=== PATIENT | male | born 1960 | race Caucasian/White ===

== ENCOUNTER 2022-07-31 05:05 | Observation (INO) ==
--- NOTE | 2022-06-29 14:37 | PAT Medication Instructions ---
Medication Instructions Date of Service June 29, 2022 Home Medications amlodipine 5 mg tablet 5 mg PO HS lisinopril 10 mg tablet 10 mg PO QAM DO NOT take the morning of surgery lisinopril 10 mg tablet 10 mg PO QAM Take evening before surgery amlodipine 5 mg tablet 5 mg PO HS Other Notes NOTHING TO EAT OR DRINK AFTER MIDNIGHT. If you have any questions please call us at [phone] or [phone] or [phone] or [phone]
--- NOTE | 2022-07-07 11:20 | Anesthesiology Consultation ---
Date of Service July 07, 2022 Assessment & Plan (1) Encounter for pre-operative examination: Chart Review Chart Review: Acceptable Risk for Surgery (pending response from PCP re: Na ) and Patient seen in Pre Admission Testing - Please send optimization note to PCP re: hyponatremia Pt currently scheduled as 23 hours observation. If surgeon decides to change patient to Same Day Joint, patient would be acceptable risk for MARLINE, pending patient is motivated, has good support and surgeon's office completes [facility] Program preop requirements. Per PAT appt on 07/07/22, patient denies any recent travel or large group activities. Pt is vaccinated for Covid. Will leave to surgeon's discretion if preop Covid testing needed. Educated on importance of using Covid precautions one week prior to surgery Teaching & Discussion Pre-Anesthesia Teaching/Discussion Notes: Instructed NPO after midnight before surgery,except medications with 15 cc of water. Medication instructions provided according to the PAT guidelines. History Surgery Operation Date: 07/31/22 12:50 Proposed Procedures p Right Anterior Total Hip Arthroplasty - Jose Muñoz DO Height/Weight Height: 5 ft 10 in Weight: 87.8 kg Allergies Allergy/AdvReac Type Severity Reaction Status Date / Time No Known Allergies Allergy Verified 06/29/22 13:56 Medications Home Medications Medication Instructions Recorded Confirmed Last Taken amlodipine 5 mg tablet 5 mg PO HS 06/29/22 06/29/22 Unknown lisinopril 10 mg tablet 10 mg PO QAM 06/29/22 06/29/22 Unknown Wheeled Walker #1 ea 07/07/22 07/07/22 Unknown Past Medical History Medical History History of COVID-2019- LOSS OF TASTE AND SMELL; RESOLVED HTN (hypertension) Hx of renal calculi No recent issues Sleep apnea CPAP Exercise / Class Metabolic Activity II 4-5 Yardwork/Stairs/Walk up hill (one flight of stairs - no chest pain or SOB ) Past Family History Family History Other No family history of adverse response to anesthesia Past Surgical History Surgical History History of lithotripsy Hx of colonoscopy Hx of cystoscopy Past Anesthesia History No Hx of Anesthesia Complications and No Family Hx of Anesthesia Complications History of PONV No Hx of PONV and No Hx of Motion Sickness Social History Smoking Status: Never smoker Do You Dip or Chew Tobacco: No Hx Alcohol Use: Yes alcohol intake frequency: a few times a week Hx Substance Use: No substance use type: does not use Review of Systems Patient denies chest pain, shortness of breath, dyspnea on exertion, reflux, cough, wheezing, palpitations. No hx of seizures, stroke, AR. No hx of blood clots or blood transfusions Physical Exam Vital Signs VITALS BP 142/87 (usually BP well controlled) P 76 TEMP 98.1 SP02 99% RESP 16 Constitutional no acute distress ENMT Mouth: no TMJ clicking Thyromental Distance: > or= 3.5 Finger Breadths (4.0) Mallampati Class: I Neck neck extension not limited Respiratory normal respiratory effort; no respiratory distress Auscultation: lungs clear to auscultation bilaterally; no wheezes Cardiovascular Rate/Rhythm: regular rate and regular rhythm Heart Sounds: no murmur Vessels: no carotid bruit Musculoskeletal Spine: no pain with cervical ROM Extremities: extremities normal to inspection Psychiatric Orientation: alert Lab Results Anesthesia Preop Results Results Anesthesia Widget: WBC 10.35 K/ul (4.8-10.8) 07/07/22 Hgb 16.2 g/dl (14.0-18.0) 07/07/22 Hct 47.2 % (42.0-52.0) 07/07/22 Plt 389 K/uL (130-400) 07/07/22 Na 129 mmol/L (136-145) L 07/07/22 K 4.0 mmol/L (3.5-5.1) 07/07/22 Cl 93 mmol/L (98-107) L 07/07/22 CO2 27 mmol/L (21-32) 07/07/22 BUN 8 mg/dl (6-23) 07/07/22 Creat 0.82 mg/dl (0.6-1.4) 07/07/22 Glucose Level 80 mg/dl (70-99(Fasting)) 07/07/22 PT 10.6 Seconds (9.0-12.0) 07/07/22 PTT 29.7 Seconds (21.0-31.0) 07/07/22 INR 1.0 (0.9-1.1) 07/07/22 Blood Type A Positive 07/07/22 Antibody Screen NEGATIVE 07/07/22 Testing Laboratory Results Hyponatremia- will send note to PCP Electrocardiogram Date: 07/07/22 Findings: + NSR @ (84bpm ) Normal EKG per cardio Chest X-Ray Date: 07/07/22 Findings: + NAD COVID-19 Risk Screen Screening Information COVID-19 Screen Date: 07/07/22 Exposure 21 Days Family/Household +COVID Last 21 Days: No Exposure 10 Days Any COVID Exposure Last 10 Days: No Symptoms Last 10 Days Experienced COVID Sx Last 10 Days: No + COVID 0-90 Days COVID + in Last 0-90 Days: No Risk Plan COVID Risk Plan: No Risk Identified Patient Education COVID Preop Screening Education Complete: Yes
[2022-07-31] MEDS ORDERED: TRANEXAMIC ACID 1,000 MG **IV Intra-op IV SCH (06:00)
[2022-07-31] MEDS ORDERED: FAMOTIDINE 20 MG TAB PO SCH (06:00)
[2022-07-31] MEDS ORDERED: LR 60ML/HR IV SCH (06:00)
[2022-07-31] MEDS ORDERED: TRANEXAMIC ACID 1,000 MG **IV Pre-op IV SCH (06:00)
[2022-07-31] MEDS ORDERED: ceFAZolin 2000MG 2,000 MG/15 ML SYR IV SCH (06:00)
[2022-07-31] MEDS ORDERED: ORTHO JOINT MIX INFIL SCH (06:00)
[2022-07-31] MEDS ORDERED: LR 500ML BOLUS, THEN 15ML/HR IV SCH (06:00)
[2022-07-31] MEDS ORDERED: GABAPENTIN 300 MG CAP PO SCH (06:00)
[2022-07-31] MEDS ORDERED: ACETAMINOPHEN 500 MG TAB PO SCH (06:00)
[2022-07-31] MEDS ORDERED: dexAMETHasone 4 MG TAB PO SCH (06:00)
[2022-07-31] MEDS ORDERED: BUPIVACAINE 0.5 % 5 MG/1 ML PF 10ML VIAL ONE (06:12)
[2022-07-31] MEDS ORDERED: PROPOFOL IV EMULSION 10 MG/ML 20 ML VIAL IV ONE (06:27)
[2022-07-31] MEDS ORDERED: fentaNYL citrate PF 100 MCG/2 ML VIAL ONE (06:27)
[2022-07-31] MEDS ORDERED: MIDAZOLAM HCL 1 MG/ML 2ML VIAL ONE (06:27)
[2022-07-31] MEDS ORDERED: ORTHO JOINT ANESTHETIC ONE (06:37)
--- NOTE | 2022-07-31 06:45 | History & Physical Bridge Note ---
Date of Service July 31, 2022 History & Physical Bridge Note I have examined the patient, reviewed the History & Physical and in the interval since the performance of the History & Physical I have noted the following changes of clinical significance: no changes noted
[2022-07-31] MEDS ORDERED: KETAMINE 50 MG/5 ML SYRINGE ONE ×2 (07:20→07:37)
[2022-07-31] MEDS ORDERED: ONDANSETRON INJ 2 MG/ML 2 ML VIAL ONE (07:45)
[2022-07-31] MEDS ORDERED: DEXAMETHASONE SOD INJ 4 MG/ML VIAL ONE (07:45)
[2022-07-31] MEDS ORDERED: fentaNYL citrate PF 100 MCG/2 ML VIAL IV PRN (08:05)
[2022-07-31] MEDS ORDERED: NALOXONE HCL 0.4 MG/1 ML VIAL/CARP IV PRN ×2 (08:05→09:42)
[2022-07-31] MEDS ORDERED: ePHEDrine sulfate 50 MG/ML AMP IV PRN (08:05)
[2022-07-31] MEDS ORDERED: HYDROmorphone INJ 1 MG/ML SYRINGE IV PRN (08:05)
[2022-07-31] MEDS ORDERED: ATROPINE SULFATE 0.1 MG/ML 10ML SYR IV PRN (08:05)
[2022-07-31] MEDS ORDERED: ONDANSETRON INJ 2 MG/ML 2 ML VIAL IV PRN ×2 (08:05→09:42)
[2022-07-31] MEDS ORDERED: FLUMAZENIL 0.1 MG/1 ML 10 ML VIAL IV PRN (08:05)
[2022-07-31] MEDS ORDERED: PROMETHAZINE HCL 12.5 MG in SODIUM CHLORIDE 0.9% 50 ML IV PRN (08:05)
--- NOTE | 2022-07-31 08:20 | Operative Report ---
PG Post Operative Report Pre & Post Diagnosis Operation Date: 07/31/22 07:00 Pre-Op Diagnosis: DJD Right Hip Post-Op Diagnosis: DJD Right Hip I identified the patient and participated in the time-out.: Yes Procedure Operation Date: 07/31/22 07:00 Actual Procedures p Right Anterior Total Hip Arthroplasty(Right) - Jose Muñoz DO Surgeon Jose Muñoz DO Chair Car Driver Jose Mccall PA-C Estimated Blood Loss 200 Findings Consistent with Post-Op Diagnosis Specimens Right femoral head Description of Procedure Implants used I used a [employer]immer[employer] total hip arthroplasty system with a size 6.5 standard offset Avenir Complete stem, a 56 mm G7 cup with a 25mm screw, an E1 polyethylene liner, a 40 mm ceramic head with a +7 neck. Reji arrived at the hospital for the above procedure. He was seen in the preoperative holding area and the operative extremity was identified and signed. He was given a spinal anesthetic, a preoperative antibiotic, and TXA. He was then taken back to the operating room and laid on the table in the supine position. He was given basic sedation. The operative leg was secured to a Puristst leg positioner. The hip was then prepped and draped in sterile fashion. A timeout was done and the patient and the operative extremity was properly identified. An anterior approach was used. Dissection was taken down through the fascia and the tensor muscle belly was retracted laterally and the rectus was retracted medially. The circumflex vessels were identified and ligated. The capsule was then incised and tagged for later repair. The femoral neck was then cut and the femoral head was removed. The acetabulum was exposed. Time was spent doing a complete circumferential labral release. Sequential reaming of the acetabulum up to a size 55 reamer was done. Final reamings were done under fluoroscopy to ensure appropriate version. A Biomet 56 mm G7 cup was then impacted into place. A single 25 mm screw was placed. The E1 polyethylene liner was then snapped into place. Surrounding soft tissues were then injected with 100 cc of an orthopedic pain control cocktail. The proximal femur was then exposed. Sequential broaching up to a size 6.5 broach was done. Off that broach a size 40 head with a +7 neck was trialed. The hip was reduced and fluoroscopic images showed anatomic alignment of the implants in acceptable length. The broach was removed. The final size 6.5 standard offset Avenir Complete stem was then impacted into place. A ceramic 40 mm head with a +7 neck was then impacted onto the stem and the hip was reduced. Final fluoroscopic images showed anatomic alignment of the hip. The capsule was then closed with #1 Vicryl suture. A dilute betadyne lavage was then done for 3 minutes. The joint was then irrigated with normal saline solution. The fascia was closed with #1 PDS suture. Skin was closed with 2-0 Vicryl, yumiko, and a Silverlon dressing. He was then transferred to a hospital bed and taken to the post anesthesia care unit in stable condition. He tolerated the procedure well. Jose Mccall PA-C, was present for the entire procedure. He was critical for patient positioning, prepping, draping, retraction exposure, wound closure and application of sterile dressing. I attest to the content of the Intraoperative Record and any orders documented therein. Any exceptions are noted below.
--- NOTE | 2022-07-31 09:04 | Fluoroscopy Report ---
FL hip RT 1V CLINICAL HISTORY: RIGHT ANTERIOR TOTAL HIPright hip arthroplasty. COMPARISON STUDY: 06/09/2022 FLUOROSCOPY TIME: 23.8 seconds FLUOROSCOPY IMAGES: 1 EXPOSURE DOSE: 2.35 mGy FINDINGS: Satisfactory alignment of the right hip arthroplasty. Expected postoperative soft tissue sw elling with deep tissue air. No acute fracture, dislocation or unexpected opaque foreign body. Scrota l surgical clips again noted. IMPRESSION: Fluoroscopic assistance as above. ACT 112: Negative or not required by law. Electronically signed by: Manny Gonzalez M.D. 07/31/2022 9:03 AM
--- NOTE | 2022-07-31 09:06 | Anesthesiology Progress Note ---
Date of Service July 31, 2022 Anesthesia Post Procedure Vital Signs Vital Signs: Temp Pulse Resp BP Pulse Ox O2 Del Method 07/31/22 05:42 36.6 C 87 20 144/82 H 98 Room Air Pain Intensity Right Hip: Pain Intensity: 3 Transfer of Care Handoff Completed per policy Notes Mental Status: alert / awake / arousable Patient Amnestic to Procedure: Yes Nausea / Vomiting: adequately controlled Pain: adequately controlled Airway Patency, RR, SpO2: stable & adequate BP & HR: stable & adequate Hydration State: stable & adequate Neuraxial Anesthesia: was administered and sensory block is resolving Anesthetic Complications: no major complications apparent
[2022-07-31] MEDS ORDERED: HYDROmorphone INJ 0.5 MG/0.5 ML SYR IV PRN (09:42)
[2022-07-31] MEDS ORDERED: MAGNESIUM HYDROXIDE SUSP 30 ML UDC PO PRN (09:42)
[2022-07-31] MEDS ORDERED: METOCLOPRAMIDE HCL INJ 5 MG/ML 2 ML VIAL IV PRN (09:42)
[2022-07-31] MEDS ORDERED: bisacodyL 10 MG SUPP PR PRN (09:42)
[2022-07-31] MEDS: SODIUM CHLORIDE 0.9% 1000ML 1,000 ML IV SCH ×2 (10:19→21:49)
--- NOTE | 2022-07-31 10:22 | XRay Report ---
XR hip 1V RT w pelvis CLINICAL HISTORY: IN PACU - Post Surgical TECHNIQUE: 2 views of the right hip and single frontal view of the pelvis were obtained. Comparison: Comparison is made to hip radiographs 06/09/2022 FINDINGS: Patient is status post total hip arthroplasty with expected postsurgical changes including soft tissu e swelling and subcutaneous emphysema. IMPRESSION: Expected postoperative appearance status post placement of total hip arthroplasty. ACT 112: Negative or not required by law. Electronically signed by: Tashi Laurent M.D. 07/31/2022 10:20 AM
[2022-07-31] MEDS: lisinopril 10 MG TAB PO SCH (10:23)
[2022-07-31] MEDS: DOCUSATE SODIUM 100 MG CAP PO SCH ×2 (10:23→19:28)
[2022-07-31] MEDS: ASPIRIN 81 MG ECTAB PO SCH ×2 (10:23→19:28)
[2022-07-31] MEDS: KETOROLAC 30 MG/ML VIAL IV SCH ×3 (10:24→22:31)
[2022-07-31] MEDS: MULTIVITAMIN TAB PO SCH (10:24)
[2022-07-31] MEDS: oxyCODONE HCL IR 5 MG TAB (IMMEDIATE RELEASE) PO PRN ×2 (13:18→22:59)
[2022-07-31] MEDS: ACETAMINOPHEN 500 MG TAB PO SCH ×2 (14:57→22:31)
[2022-07-31] MEDS: ceFAZolin 2000MG 2,000 MG/15 ML SYR IV SCH ×2 (14:58→22:30)
[2022-07-31] MEDS ORDERED: amLODIPine BESYLATE 5 MG TAB PO SCH (21:00)
[2022-07-31] MEDS ORDERED: SENNA 8.6 MG TAB PO SCH (21:00)
[2022-08-01] MEDS: KETOROLAC 30 MG/ML VIAL IV SCH ×2 (04:52→10:33)
[2022-08-01] MEDS: ACETAMINOPHEN 500 MG TAB PO SCH (04:53)
[2022-08-01] MEDS: ASPIRIN 81 MG ECTAB PO SCH (07:49)
[2022-08-01] MEDS: MULTIVITAMIN TAB PO SCH (07:49)
[2022-08-01] MEDS: DOCUSATE SODIUM 100 MG CAP PO SCH (07:49)
[2022-08-01] MEDS: lisinopril 10 MG TAB PO SCH (07:49)
--- NOTE | 2022-08-01 07:57 | Orthopedic Progress Note ---
Date of Service August 01, 2022 Assessment & Plan (1) Status post right hip replacement: Overall he is doing very well. He is not having much pain in the right hip. He will be seen by physical therapy today for ambulation and range of motion exercises. He is on aspirin for DVT prophylaxis. He can be discharged home later today. He will follow-up with orthopedics in 2 weeks. Zenia Mendoza was seen and examined at bedside this morning. Overall he is doing very well. He is not having much pain in the right hip. He has been up ambulating to the bathroom. He has no complaints.. Review of Systems All systems reviewed & are unremarkable except as noted in HPI & below. Physical Exam On physical examination of the right hip, the dressing is clean and dry. His leg is out full extension. He has active dorsiflexion plantarflexion of the right ankle.. Results & Data Results & Data Laboratory Results . Diagnostic Findings Postoperative x-rays of the right hip show the prosthesis to be in anatomic alignment without any evidence of fracture, dislocation, or loosening. PG Care Time/CCT Total # of Minutes Spent Total Time Spent with Patient: Total time spent is greater than 50% in coordination of care (as documented) at patient's floor/unit and/or counseling patient: Coding Level of Care Code 11112 Post Operative Follow-Up Diagnoses Status post right hip replacement Z96.641
--- NOTE | 2022-08-01 07:58 | Discharge Summary ---
Date of Service August 01, 2022 Principal Diagnosis Same as "Discharge Diagnosis" noted below under Discharge Instructions. Discharge Exam On physical examination of the right hip, the dressing is clean and dry. His leg is out full extension. He has active dorsiflexion plantarflexion of the right ankle.. Discharge Data Procedures Performed Operation Date: 07/31/22 07:00 Actual Procedures p Right Anterior Total Hip Arthroplasty(Right) - Jose Muñoz DO Ordered Studies 07/31/22 FL hip RT 1V Routine Hospital Course (1) Status post right hip replacement: On July 31, 2022 Reji arrived at [facility] and underwent a right hip replacement without complication. He had a spinal anesthetic. Postoperatively he was started on aspirin for DVT prophylaxis and transferred to the general orthopedic floors. His hospital course was uneventful. On postop day #1, his vital signs were stable and his pain was well controlled. He was able to participate well with physical therapy doing ambulation and range of m otion exercises. He was then discharged home. He will follow-up with orthopedics in 2 weeks. PG Care Time/CCT Total # of Minutes Spent Total Time Spent with Patient: Total time spent is greater than 50% in coordination of care (as documented) at patient's floor/unit and/or counseling patient: Discharge Plan Discharge Items Patient Disposition: Home - Home Health Services Reason For Visit: DJD Right Hip Discharge Diagnosis: Right hip replacement Activity: Per Instructions section Non-emergency contact: Surgeon Call non-emergency contact if: your wound has increased redness and your wound has increased drainage Follow-up/Referrals: Pamela Goodson PA-C [Primary Care Provider] - Diet: Regular Addtl Attending Provider Instructions: Activity and Therapy Recommendations: * If you are using [facility] then therapy will be provided at your home until they feel you have accomplished all of your goals. * If you are using [facility] then Physical Therapy will be provided until they feel you are ready to start Outpatient Physical Therapy. * If you are not using home therapy then Outpatient Physical Therapy should start about 3-5 days from your day of surgery. Therapy will last about 6-10 weeks * You were shown a series of exercises in the hospital. Do these exercises three times each day including the exercises you were shown in physical therapy. * Get up and walk several times each day.~ For the first four weeks, try not to stand or walk for more than one hour at a time. If you do stand or walk for more than one hour, you will not hurt anything, but your leg will likely swell.~~ * As you feel comfortable, you may change from the walker or crutches to a cane and~then to independent walking. Medications: * Narcotic You will likely be sent home from the hospital with a prescription for the narcotic pain medication that worked best throughout your stay. * Aspirin Most patients will be required to take Aspirin 81mg twice a day for 6 weeks after surgery. This is obtained [id number] and a prescription is not necessary. * Other medications may be prescribed for specific circumstances. If you have any questions, please call the office at . * Resume previous home medications unless otherwise instructed TEDs/Elastic Stockings: The white elastic stockings help limit swelling and prevent blood clots from forming in your legs. The more you wear them, the more they work. Wear them for six weeks. Dressing Care: Leave the Silverlon dressing in place for 7 days. After 7 days you may remove the dressing. If the incision is not draining then you may leave the yumiko open to air. If there is a little bit of drainage or if the yumiko are getting stuck on your clothing then cover the incision with a dry dressing. The yumiko will be removed at your 2 week follow-up appointment. Showering: You may shower with the Silverlon dressing in place. Do not let the shower spray hit the dressing directly. Pat the Silverlon dressing dry. If the dressing becomes wet underneath, then simply remove the dressing. Keep the incision dry until you are 7 days out from the day of surgery. After 7 days you may remove the Silverlon dressing and shower with the yumiko exposed. Let soapy water run over the yumiko and pat them dry. Do not scrub or soak the incision. Things To Watch For: * Drainage from the incision site that occurs more than one week after your surgery. * Increased redness at the incision site. * Fever above 102 degrees Fahrenheit. * Unusual chest pain or shortness of breath. * Call [facility] at with any of the above problems Follow-Up Visit: Follow-up with Dr. Muñoz's PA (Jose Mccall) 2-3 weeks after your day of surgery. He will remove your yumiko and answer any questions. If you have any additional questions or concerns, Dr Muñoz is usually in the office at the same time and will be available An appointment was probably scheduled when you signed-up for surgery in the office. If you have any questions call Office Instructions: More detailed instructions as well as Frequently Asked Questions were provided in a folder by our office when you signed-up for surgery. Please review these instructions when you get home. If you have any further questions or concerns, please feel free to call the office at [phone] Pending Studies at Discharge: No Stand-Alone Forms: My [facility] [place] depict, Smoking Cessation Medications and DC Order Prescriptions: New aspirin 81 mg Tablet,Delayed Release (Dr/Ec) 81 mg PO BID 42 Days Qty: 84 0RF oxycodone-acetaminophen 5-325 mg tablet 1 tab PO Q6H PRN (Reason: pain) Qty: 30 0RF Continued amlodipine 5 mg tablet 5 mg PO HS lisinopril 10 mg tablet 10 mg PO QAM (DME) Wheeled Walker Misc See Rx Instructions .MEDSUPPLY Qty: 1 0RF Rx Instructions: As directed Admission Data Admit Date/Time: 07/31/22 08:44 Attending Provider: Jose Muñoz Admit Provider: Jose Muñoz Primary Care Provider: Pamela Goodson
[2022-08-01] MEDS ORDERED: dexAMETHasone 4 MG TAB PO SCH (08:00)
[2022-08-01] MEDS: oxyCODONE HCL IR 5 MG TAB (IMMEDIATE RELEASE) PO PRN (09:04)
== END 2022-08-01 11:36 | disposition home health service (06) ==
LOC: 3E 05:05 → ASU 05:05